=== PATIENT | male | born 1965 | race Caucasian/White ===

== ENCOUNTER 2018-06-18 12:08 | Emergency (ER) | payer MEDICAID, OTHER ==
--- NOTE | 2018-06-18 13:09 | ED ---
Shortness of Breath - HPI Summary HPI Summary: The pt is a 53 y/o male presenting to [facility] c/o intermittent SOB worsened today. He notes a productive cough, chest tightness (resolved) but denies abd pain. The pt reports that he recently run out of his inhaler. PMHx: Asthma, MRSA, Smoking. - History of Current Complaint Chief Complaint: EDShortnessOfBreath Time Seen by Provider: 06/18/18 13:04 Hx Obtained From: Patient Onset/Duration: Still Present, Worse Since - Today Timing: Intermittent Episodes Lasting: Aggrevating Factors: Nothing Alleviating Factors: Nothing Associated Signs & Symptoms: Cough (Productive) - Allergy/Home Medications Allergies/Adverse Reactions: Allergies Allergy/AdvReac Type Severity Reaction Status Date / Time No Known Allergies Allergy Verified 06/18/18 12:35 PMH/Surg Hx/FS Hx/Imm Hx Previously Healthy: No Endocrine/Hematology History: Denies: Hx Diabetes, Hx Thyroid Disease Cardiovascular History: Reports: Hx Angina, Hx Hypertension, Other Cardiovascular Problems/Disorders - Hx HTN Denies: Hx Coronary Artery Disease, Hx Myocardial Infarction Respiratory History: Reports: Hx Asthma Denies: Hx Chronic Obstructive Pulmonary Disease (COPD) GI History: Denies: Hx Ulcer Sensory History: Denies: Hx Cataracts, Hx Contacts or Glasses, Hx Glaucoma, Hx Hearing Aid Opthamlomology History: Denies: Hx Cataracts, Hx Contacts or Glasses, Hx Glaucoma - Cancer History Cancer Type, Location and Year: Hernia repair 2007 Hx Chemotherapy: No - Surgical History Surgery Procedure, Year, and Place: Hernia repair 2007., LEFT HAND SURGERY FOR MRSA 01/06/13 Hx Anesthesia Reactions: No Infectious Disease History: Yes Infectious Disease History: Reports: Hx of Known/Suspected MRSA - 2012 arm wound - now resolved Denies: Hx Clostridium Difficile, Hx Hepatitis, Hx Human Immunodeficiency Virus (HIV), Hx Shingles, Hx Tuberculosis, Traveled Outside the [place] in Last 30 Days - Family History Known Family History: Positive: Cardiac Disease - CAD, Hypertension, Diabetes - Social History Occupation: Employed Full-time Lives: With Family Alcohol Use: Occasionally Substance Use Type: Reports: None Smoking Status (MU): Current Every Day Smoker Type: Cigarettes Amount Used/How Often: 1/2 ppd Review of Systems Positive: Shortness Of Breath, Cough - Productive , Other - Chst tightness Negative: Abdominal Pain All Other Systems Reviewed And Are Negative: Yes Physical Exam - Summary Physical Exam Summary: Appearance: Well appearing, no pain distress Skin: warm, dry, reflects adequate perfusion Head/face: normal Eyes: EOMI, NADEEN ENT: normal Neck: supple, non-tender Respiratory: bilateral wheezing Cardiovascular: RRR, pulses symmetrical Abdomen: non-tender, soft Musculoskeletal: normal, strength/ROM intact Neuro: normal, sensory motor intact, A&Ox3 Triage Information Reviewed: Yes Vital Signs On Initial Exam: Initial Vitals Temp Pulse Resp BP Pulse Ox 98.2 F 74 20 157/107 94 06/18/18 12:31 18 12:31 06/18/18 12:31 06/18/18 12:31 06/18/18 12:31 Vital Signs Reviewed: Yes Diagnostics - Vital Signs Vital Signs Temp Pulse Resp BP Pulse Ox 06/18/18 12:31 98.2 F 74 20 157/107 94 - Laboratory Result Diagrams: 06/18/18 13:23 06/18/18 13:23 Lab Statement: Any lab studies that have been ordered have been reviewed, and results considered in the medical decision making process. - Radiology CXR Radiology Interpretation Completed By: Radiologist Summary of Radiographic Findings: IMPRESSION: NO ACTIVE CARDIOPULMONARY DISEASE. The ED physician reviewed this radiology report. - EKG 13:29 Cardiac Rate: Bradycardia - 54 bpm EKG Rhythm: Sinus Bradycardia Course/Dx - Course Course Of Treatment: A 53 year-old M with a hx of asthma presents to the ED with a CC of intermittent SOB. He notes a productive cough, chest tightness ( resolved) but denies abd pain. A physical exam revealed bilateral wheezing. A CXR is unremarkable. An EKG reveals sinus bradycardia. In the ED course, pt was given Albuterol 3 neb INH and Prednisone 60 mg PO which improved the symptoms. Patient will be discharged with a final Dx of [place] exacerbation and bronchitis. Pt is agreeable with this plan. Allergies noted. - Diagnoses Differential Diagnosis/HQI/PQRI: Positive: Asthma, Bronchitis, Pneumonia Provider Diagnoses: Asthma exacerbation, Bronchitis Discharge - Sign-Out/Discharge Documenting (check all that apply): Patient Departure - DC - Discharge Plan Condition: Stable Disposition: HOME Prescriptions: Albuterol HFA INHALER* [Ventolin HFA Inhaler*] 2 puff INH Q6H PRN #1 mdi MDD 4 PRN Reason: Sob/Wheezing predniSONE TAB* [Deltasone 20 MG TAB*] 60 mg PO DAILY #4 tab Patient Education Materials: Asthma (ED), Acute Bronchitis (ED) Referrals: Cassie Oseguera MD [Primary Care Provider] - Additional Instructions: Follow up with PCP in 2-3 days. Return to the ED for any new or worsening symptoms. - Billing Disposition and Condition Condition: STABLE Disposition: Home - Attestation Statements Document Initiated by Kristinibalexander: Yes Documenting Scribe: Carolynn Arcos Provider For Whom Bo is Documenting (Include Credential): Dr. Jeronimo Johns MD Scribe Attestation: Carolynn Monsalve scribed for Dr. Jeronimo Johns MD on 06/18/18 at 1456. Scribe Documentation Reviewed: Yes Provider Attestation: The documentation as recorded by the Carolynn pinzon accurately reflects the service I personally performed and the decisions made by ny, Dr. Jeronimo Johns MD Status of Scribe Document: Viewed
[2018-06-18] MEDS ORDERED: Albuterol/Ipratropium NEB.SOL* Albuterol 2.5 MG/Ipratropium 0.5 MG 3 ML INH ONE (13:10)
[2018-06-18] MEDS ORDERED: predniSONE TAB* 20 MG PO ONE (13:12)
[2018-06-18 13:40] LABS: ABS Basophils 0.1 10^3/ul (0-0.2); ABS Eosinophils 0.3 10^3/ul (0-0.6); ABS Lymphocytes 1.6 10^3/ul (1.0-4.8); ABS Monocytes 0.5 10^3/ul (0-0.8); ABS Neutrophils 5.7 10^3/ul (1.5-7.7); ABS Nucleated RBC 0 10^3/ul; Eosinophil % 4.2 %; Hematocrit 46 % (42-52); Hemoglobin 15.9 g/dl (14.0-18.0); Mean Corpuscular HGB Conc 35 g/dl (31-36); Mean Corpuscular Hemoglobin 30 pg (27-31); Mean Corpuscular Volume 86 fL (80-94); Mean Platelet Volume 7.9 fL (7.4-10.4); Nucleated Red Blood Cells % 0.1; Platelet Count 224 10^3/ul (150-450); Red Blood Count 5.36 10^6/ul (4.00-5.40); Red Cell Distribution Width 13 % (10.5-15); White Blood Count 8.2 10^3/ul (3.5-10.8)
[2018-06-18 13:59] LABS: Albumin 4.3 g/dL (3.2-5.2); Albumin/Globulin Ratio 1.9 (1-3); BUN/Creatinine Ratio 12.3 (8-20); Calcium 9.5 mg/dL (8.6-10.3); EGFR Non-African American 73.4 (>60); Globulin 2.3 g/dL (2-4); Total Bilirubin 0.3 mg/dL (0.2-1.0); Total Protein 6.6 g/dL (6.4-8.9)
[2018-06-18 14:04] LABS: Activated Partial Thrombo Time 29.2 seconds (26.0-36.3); INR 0.84 (0.77-1.02)
[2018-06-18 15:00] VITALS: BP 142/85
== END 2018-06-18 15:08 | disposition home or self-care (01) ==
LOC: ED 12:08
DX: J45.901 Unspecified asthma with (acute) exacerbation (principal); J40 Bronchitis, not specified as acute or chronic; R00.1 Bradycardia, unspecified
CPT/HCPCS: 36415; 71045; 80053; 83605; 83880; 84484; 85025; 85610; 85730; 93005; 99282; A9270-GY; J7512

== ENCOUNTER 2020-12-16 03:19 | Observation (INO) ==
[2020-12-16 05:17] LABS: Hematocrit 46 % (42-52); Hemoglobin 15.5 g/dL (14.0-18.0); Mean Corpuscular HGB Conc 34 g/dL (31-36); Mean Corpuscular Hemoglobin 30 pg (27-31); Mean Corpuscular Volume 88 fL (80-94); Platelet Count 239 10^3/uL (150-450); Red Blood Count 5.17 10^6 /uL (4.18-5.48); Red Cell Distribution Width 13 % (10-15); White Blood Count 7.3 10^3/uL (3.5-10.8)
[2020-12-16 05:18] LABS: ABS Basophils 0.1 10^3/ul (0-0.2); ABS Eosinophils 0.2 10^3/ul (0-0.6); ABS Lymphocytes 1.3 10^3/ul (1.0-4.8); ABS Monocytes 0.5 10^3/ul (0-0.8); ABS Neutrophils 5.2 10^3/ul (1.5-7.7); Eosinophil % 2.7 %; Lymphocyte % 17.8 %; Mean Platelet Volume 8.2 fL (7.4-10.4)
[2020-12-16 05:19] LABS: Albumin 4.3 g/dL (3.2-5.2); EGFR African American 84.4 (>60); EGFR Non-African American 69.8 (>60); Globulin 2.4 g/dL (2-4); Potassium 4.5 mmol/L (3.5-5.0); Total Protein 6.7 g/dL (6.4-8.9)
[2020-12-16 05:20] LABS: Albumin/Globulin Ratio 1.8 (1-3); Total Bilirubin 0.4 mg/dL (0.2-1.0); Troponin I 0.01 ng/mL (<0.03)
[2020-12-16] MEDS ORDERED: Albuterol HFA INHALER 8 gm MDI INH PRN (08:45)
[2020-12-16 12:04] VITALS: BP 144/95
[2020-12-17] MEDS ORDERED: Aspirin EC 81 mg TAB.EC (enteric coated) PO SCH (09:00)
== END 2020-12-16 14:36 | disposition home or self-care (01) ==
LOC: MEDTELE 05:08 → ED 05:08 → MEDTELE 10:11
PROVIDERS: ADMIT Internal Medicine; ATTEND Internal Medicine

== ENCOUNTER 2021-11-21 07:30 | Inpatient (IN) ==
[~2021-11-21 07:30] MED LIST: Buffered Lidocaine 1% SYRIN 1 ml INTRADERM ONE; HYDROcodone/ACETAMIN 5/325 mg TAB PO PRN; Lactated Ringers 1000 ml BAG 1,000 ML IV SCH; Metoclopramide 5 MG/ML VIAL (10 mg) IV PRN; Naloxone 0.4 mg VIAL 0.4 mg/ml 1 ml VIAL IV PRN; Ondansetron 4 mg VIAL 2 MG/ML 2 ml VIAL IV PRN
[2021-11-21] MEDS ORDERED: Ondansetron 4 mg VIAL 2 MG/ML 2 ml VIAL IV PRN (07:56)
[2021-11-21] MEDS ORDERED: Naloxone 0.4 mg VIAL 0.4 mg/ml 1 ml VIAL IV PRN (07:56)
[2021-11-25] MEDS ORDERED: Lactated Ringers 1000 ml BAG 1,000 ML IV SCH (06:00)
[2021-11-25] MEDS ORDERED: Buffered Lidocaine 1% SYRIN 1 ml INTRADERM ONE (06:00)
[2021-11-25] MEDS ORDERED: Famotidine IV 10 MG/ML 2 ml VIAL (20 mg) IV ONE (06:00)
[2021-11-25] MEDS ORDERED: Scopolamine 1 mg/72hr PATCH TRANSDERM ONE (06:00)
[2021-11-25] MEDS ORDERED: Famotidine IV 10 MG/ML 2 ml VIAL (20 mg) ONE (07:46)
[2021-11-25] MEDS ORDERED: ceFAZolin 2 GM in NS PREMIX 2 GM/100 ML BAG IVPB ONE (07:46)
[2021-11-25] MEDS ORDERED: Lidocaine 1% w EPI 1:200,000 SDV 30 ML VIAL ONE (09:01)
[2021-11-25] MEDS ORDERED: ceFAZolin VIAL VIAL ONE ×2 (09:01→14:14)
[2021-11-25] MEDS ORDERED: Propofol 10 MG/ML 20 ML BTL ONE (09:33)
[2021-11-25] MEDS ORDERED: Dexamethasone IV 4 MG/ML VIAL 1 ml VIAL ONE (09:33)
[2021-11-25] MEDS ORDERED: Metoclopramide 5 MG/ML VIAL (10 mg) ONE (09:33)
[2021-11-25] MEDS ORDERED: Ondansetron 4 mg VIAL 2 MG/ML 2 ml VIAL ONE (09:33)
[2021-11-25] MEDS ORDERED: Propofol 10 mg/ml 100 ML BTL 200 ML ONE ×2 (09:34→12:57)
[2021-11-25] MEDS ORDERED: Remifentanil 2 MG VIAL ONE ×3 (09:35→12:42)
[2021-11-25] MEDS ORDERED: Rocuronium 50 mg VIAL 10 mg/ml 5 ml VIAL (50 mg) ONE (09:43)
[2021-11-25] MEDS ORDERED: Phenylephrine IV 10 MG/ML 1 ml VIAL ONE (09:43)
[2021-11-25] MEDS ORDERED: Succinylcholine 200 mg VIAL 20 mg/ml 10 ml VIAL (200 mg) ONE (09:45)
[2021-11-25] MEDS ORDERED: fentaNYL 100 mcg/2 ml 50 MCG/ML VIAL ONE ×2 (09:45→15:16)
[2021-11-25] MEDS ORDERED: Levalbuterol HFA INHALER MDI ONE (10:33)
[2021-11-25] MEDS ORDERED: Ketamine HCL 50 mg/ml 10 ml VIAL (500 MG) ONE (10:48)
[2021-11-25] MEDS ORDERED: Glycopyrrolate IV 0.2 MG/ML 1 ML VIAL ONE (11:41)
[2021-11-25] MEDS ORDERED: Hydrocortisone INJ 100 MG/2ML 2 ML VIAL ONE ×2 (11:58→13:43)
[2021-11-25] MEDS ORDERED: Terbutaline INJ 1 MG/ML 1 ml VIAL ONE (13:43)
[2021-11-25] MEDS ORDERED: HYDROmorphone 0.5 MG/0.5 ML SYRINGE ONE (14:29)
[2021-11-25] MEDS ORDERED: HYDROmorphone 0.5 MG/0.5 ML SYRINGE IV SLOW PU PRN (15:14)
[2021-11-25] MEDS: fentaNYL 100 mcg/2 ml 50 MCG/ML VIAL IV PRN ×3 (15:19→16:02)
[2021-11-25] MEDS ORDERED: HYDROmorphone 1 MG/1 ML SYRINGE ONE ×2 (15:28→16:16)
[2021-11-25] MEDS: HYDROmorphone 1 MG/1 ML SYRINGE IV PRN ×3 (15:32→16:18)
[2021-11-25] MEDS ORDERED: Ondansetron 4 mg VIAL 2 MG/ML 2 ml VIAL IV PRN (15:35)
[2021-11-25] MEDS ORDERED: Albuterol HFA INHALER 8 gm MDI INH PRN (15:58)
[2021-11-25] MEDS ORDERED: BETAMETHASONE DIPROPIONATE 0.05% TOPICAL PRN (15:58)
[2021-11-25] MEDS ORDERED: HYDROcodone/ACETAMIN 5/325 mg TAB ONE (17:25)
[2021-11-25] MEDS: Scopolamine 1 mg/72hr PATCH TRANSDERM SCH (19:36)
[2021-11-25] MEDS: Triamcinolone 0.025% OINT 15 GM TUBE TOPICAL SCH (21:00)
[2021-11-25] MEDS: HYDROcodone/ACETAMIN 5/325 mg TAB PO PRN (21:02)
[2021-11-26] MEDS: HYDROcodone/ACETAMIN 5/325 mg TAB PO PRN ×3 (02:29→11:37)
[2021-11-26] MEDS: Scopolamine 1 mg/72hr PATCH TRANSDERM SCH (06:55)
[2021-11-26 07:49] VITALS: BP 159/93
[2021-11-26] MEDS: Triamcinolone 0.025% OINT 15 GM TUBE TOPICAL SCH (07:52)
== END 2021-11-26 12:35 | disposition home or self-care (01) | DRG 321 ==
LOC: AA 11-25 07:25 → SSU 11-25 18:45
PROVIDERS: ADMIT Neurological Surgery; ATTEND Neurological Surgery